=== PATIENT | male | born 1955 | race African-American/Black ===

== ENCOUNTER 2016-10-19 07:54 | Emergency (ER) | payer OTHER ==
[~2016-10-19] VITALS: Ht 167.6 cm; Wt 57.1 kg
[~2016-10-19 07:54] MED LIST: ACETAMINOPHEN-1 EAC1 PO; ADULT LOW DOSE81 MG PO; ALEVE220 M1; AMLODIPINE BESYL5 MG PO; AMOXICILLIN 50500 MG PO; ASPIRIN325 PO; AUGMENTIN400 MG/51 PO; AZITHROMYCIN250 MG PO; BLOOD PRESSURE PILL; CARAFATE 11 GM/10 M1 PO; CIPROFLOXACIN500 M1 PO; COLACE 100 MG100 MG PO; COLACE100 MG PO; COMBIVENT INH; ENDUR-ACIN500 MG PO; FAMOTIDINE 20 M20 MG PO; FERROUS SULFAT325 M1 PO; FLAGYL500 MG; FLAGYL500 MG PO; HYDROCODON-ACE1 EAC7 PO; IBUPROFEN 800800 MG PO; IMDUR 30 MG TAB30 M1 PO; IRON; IRON325 PO; LIBRIUM10 MG PO; LIPITOR10 MG PO; METRONIDAZOLE500 M4 PO; MILK OF MA400 MG/5 M PO; MIRALAX255 GM PO; NEXIUM 40 MG CA40 M1 PO; NOHOMEMEDICATIONS; NORCO 5-325 TA1 EACH; NORCO 5-325 TA1 EACH PO; NORVASC 5 MG TAB5 MG PO; PERCOCET 5-3251 EACH PO; PHENADOZ25 MG RC; PHENERGAN 25 MG25 M1 PO; PHENERGAN25 M2 RC; PHENERGAN25 MG RECTAL; PLAVIX 75 MG TA75 M1 PO; PREDNISONE 20 M20 MG PO; PRILOSEC 20 MG20 MG PO; PRILOSEC40 MG PO; PROBIOTIC1 EACH; PROTONIX40 M1 PO; PROTONIX40 M2 PO; PROTONIX40 MG PO; QUINAPRIL-HCTZ1 EACH PO; QUINU10 PD; SIMVASTATIN40 MG PO; VENTOLIN HFA 1818 GM INH; VICODIN 5-5001 EACH PO; VITAMIN D 5050000 I1; VITAMIN D32000 UNIT PO; VITAMIN D400 UNI1; ZANTAC 150MG T150 M1 PO; ZANTAC 150MG T150 MG PO; ZANTAC 7575 MG PO; ZOFRAN 4 MG ORAL4 MG PO; ZOFRAN ODT4 MG PO; ZOFRAN4 MG PO
[2016-10-19] MEDS ORDERED: PROTONIX 20 MG20 M1 PO (08:12)
[2016-10-19] MEDS ORDERED: QUINAPRIL-HCTZ1 EACH PO (08:13)
[2016-10-19 09:27] LABS: ABSOLUTE NEUTROPHILS 1.7 thou/uL (1.4-8.2); EOSINOPHILS 1.8 % (0.0-3.0); HEMATOCRIT 23.4 % (42.0-52.0); HEMOGLOBIN 7.7 gm/dL (14.0-18.0); LYMPHOCYTES 38.8 % (24.0-44.0); MCH 25.4 pg (26.0-34.0); MCV 76.9 fL (80.0-100.0); MONOCYTES 11.1 % (1.0-8.0); PLATELET COUNT 181 thou/uL (150-400); POLYS 47.3 % (36.0-66.0); RBC 3.04 mil/uL (4.50-6.00); RDW 14.7 % (10.5-14.5); WBC 3.5 thou/uL (4.0-11.0)
[2016-10-19 09:32] LABS: MANUAL DIFF NO
[2016-10-19 09:34] LABS: CALCIUM 9.2 mg/dL (8.5-10.1); CREATININE 1.2 mg/dL (0.7-1.3); POTASSIUM 3.5 mmol/L (3.5-5.1)
[2016-10-19 09:40] LABS: APTT 25.7 Seconds (24.5-32.8); INR 1.1
[2016-10-19 11:03] LABS: URINE BILIRUBIN NEGATIVE (Negative); URINE BLOOD 3+ (Negative); URINE COLOR YELLOW; URINE GLUCOSE-RANDOM* NEGATIVE (Negative); URINE KETONES NEGATIVE (Negative); URINE LEUKOCYTES-REFLEX NEGATIVE (Negative); URINE PROTEIN (DIPSTICK) TRACE (Negative); URINE SPECIFIC GRAVITY 1.015 (1.003-1.035); URINE UROBILINOGEN 0.2 E.U./dl (0.2-1.0)
[2016-10-19 11:11] LABS: CASTS None Seen /LPF (None Seen); CRYSTALS None Seen /LPF (None Seen); SQUAMOUS None Seen /LPF (0-3); URINE RBC >20 Many /HPF (0-2)
[2016-10-19 11:12] LABS: URINE WBC-REFLEX 0-5 Rare /HPF (0-5)
== END 2016-10-19 13:33 | disposition home or self-care (01) ==
LOC: ER 07:54
PROVIDERS: Emergency Medicine
DX: R31.0 Gross hematuria (principal); I10 Essential (primary) hypertension; I25.2 Old myocardial infarction; Z87.19 Personal history of other diseases of the digestive system; F17.210 Nicotine dependence, cigarettes, uncomplicated; F15.10 Other stimulant abuse, uncomplicated

== ENCOUNTER 2016-12-15 13:26 | Inpatient (IN) | payer OTHER ==
[~2016-12-15] VITALS: Ht 167.6 cm; Wt 56.7 kg
--- NOTE | ~2016-12-15 | S ---
[facility] [place] [address] SURGICAL PATH RPT PROCEDURE Name: LINDSAY VALDEZ Room #: 439-P DIS IN M.R.#: [id number] Admission: 12/15/16 Date of : 51 Discharge: 12/18/16 Report #: [id number] Path Case #: [id number] PATHOLOGY REPORT COLLECTION DATE: 12/16/2016 RECEIVED DATE: 12/19/2016 SUBMITTING PHYS: Dr. Roula Hinson OTHER PHYS: SPECIMEN(S) RECEIVED: A.Peripheral smear * * * * * * * * * * * * FINAL DIAGNOSIS: Peripheral blood smear: - Severe microcytic anemia (see comment). COMMENT: Overall, the peripheral blood has severe microcytic anemia. WBC and platelet counts are within the normal reference ranges. The WBC differential is without significant abnormalities. The etiology of the findings is unclear based entirely on slide review. It is likely iron deficiency anemia. Other causes of microcytic anemia include thalassemia and other hemoglobinopathies. Correlation with clinical history and additional laboratory data is recommended. (CLW:db; 12/19/2016) PATHOLOGIST: Nieves Hoffman M.D. REPORT ELECTRONICALLY SIGNED BY: Nieves Hoffman M.D. DATE/TIME: 12/19/2016 21:33 * * * * * * * * * * * * MICROSCOPIC DESCRIPTION: CBC Data (12/16/16): WBC 4.200 /uL, RBC 2.83, hemoglobin 6.9 g/dL, hematocrit 21.3%, MCV 75.4 fL, MCH 24.3 pg, MCHC 32.2 g/dL, RDW 20.2%. Platelet count 157,000 /uL. Automated white blood cell differential: segs 47.1%, lymphs 39.0%, monos 11.5%, eos 1.8% and basos 0.6%. Manual white blood cell differential: segs 50%, lymphs 40%, monos 10%. Peripheral Blood Smear: Cytomorphological examination of the Pichardo's stained peripheral blood smear confirms the provided data. Red blood cells show severe microcytic anemia with moderate anisopoikilocytosis. No schistocytes or microspherocytes are seen. White blood cells are predominantly segmented neutrophils and are without significant dyspoiesis or significant left shift. Lymphocytes are predominantly small, round and mature appearing with condensed chromatin and scant cytoplasm [address] [address] SURGICAL PATH RPT PROCEDURE Name: LINDSAY VALDEZ Room #: 439-P DIS IN M.R.#: [id number] Admission: 12/15/16 Date of : 51 Discharge: 12/18/16 Report #: [id number] Path Case #: [id number] with admixed large granular lymphocytes. On scanning, no markedly atypical lymphoid cells are seen. Monocytes are mature. Platelets are adequate in number and mainly normal in morphology with rare larger platelets noted. CLINICAL HISTORY: 61 year old man with anemia. Morphologic review of the peripheral blood smear is requested by the patient's physician. INITIAL CPT CODE(S): A; NC Professional services performed by [facility] at [facility] [address], [place] [address] Technical services performed by [facility] at [address] [place] [address], [address], [place] [address]. [facility] [address] [place] [address] PHONE: [phone] DIRECTOR: Tiago Chadwick M.D. * * * END OF REPORT * * *
[~2016-12-15 13:26] MED LIST changes: +PROTONIX 20 MG20 M1 PO
[2016-12-15 13:27] VITALS: BP 137/84
[2016-12-15 14:13] LABS: ABSOLUTE NEUTROPHILS 3.8 thou/uL (1.4-8.2); BASOPHILS 0.6 % (0.0-2.0); EOSINOPHILS 1.1 % (0.0-3.0); HEMATOCRIT 26.4 % (42.0-52.0); HEMOGLOBIN 8.4 gm/dL (14.0-18.0); MCV 75.1 fL (80.0-100.0); MONOCYTES 9.7 % (1.0-8.0); PLATELET COUNT 203 thou/uL (150-400); POLYS 47.6 % (36.0-66.0); RBC 3.51 mil/uL (4.50-6.00); RDW 19.9 % (10.5-14.5); WBC 7.9 thou/uL (4.0-11.0)
[2016-12-15 14:14] LABS: MANUAL DIFF NO
[2016-12-15 14:16] LABS: CALCIUM 9.3 mg/dL (8.5-10.1); CREATININE 1.2 mg/dL (0.7-1.3); POTASSIUM 3.5 mmol/L (3.5-5.1)
[2016-12-15 14:16] LABS: URINE BILIRUBIN NEGATIVE (Negative); URINE BLOOD 1+ (Negative); URINE COLOR YELLOW; URINE GLUCOSE-RANDOM* NEGATIVE (Negative); URINE KETONES NEGATIVE (Negative); URINE LEUKOCYTES-REFLEX NEGATIVE (Negative); URINE PROTEIN (DIPSTICK) NEGATIVE (Negative); URINE UROBILINOGEN 0.2 E.U./dl (0.2-1.0)
[2016-12-15 14:22] LABS: ALBUMIN 3.8 g/dL (3.4-5.0); TOTAL BILIRUBIN 0.3 mg/dL (<0.1-1.0); TOTAL PROTEIN 8.1 g/dL (6.4-8.2)
[2016-12-15 14:27] LABS: SQUAMOUS 0-3 Few /LPF (0-3)
[2016-12-15 14:28] LABS: HYALINE CASTS 0-3 Few /LPF (None Seen); URINE RBC 3-10 Few /HPF (0-2); URINE WBC-REFLEX 0-5 Rare /HPF (0-5)
[2016-12-15 14:29] LABS: CRYSTALS None Seen /LPF (None Seen)
[2016-12-15] MEDS ORDERED: CENTRUM SILVER1 EAC2 PO (14:58)
[2016-12-15 17:12] VITALS: BP 118/63
[2016-12-15 17:44] VITALS: BP 130/58
[2016-12-15 17:47] VITALS: BP 130/58
[2016-12-15 19:45] VITALS: BP 114/63
[2016-12-16 00:35] VITALS: BP 123/64
[2016-12-16 04:45] VITALS: BP 121/59
[2016-12-16 06:23] LABS: MCH 24.2 pg (26.0-34.0); MCHC 32.5 g/dL (28.0-37.0); MCV 74.4 fL (80.0-100.0); WBC 4.1 thou/uL (4.0-11.0)
[2016-12-16 06:25] LABS: HEMOGLOBIN 6.8 gm/dL (14.0-18.0); RBC 2.83 mil/uL (4.50-6.00); RDW 19.6 % (10.5-14.5)
[2016-12-16 06:35] LABS: CALCIUM 8.2 mg/dL (8.5-10.1); CREATININE 1.1 mg/dL (0.7-1.3); POTASSIUM 3.6 mmol/L (3.5-5.1)
[2016-12-16 08:13] VITALS: BP 118/53
[2016-12-16 11:29] VITALS: BP 119/62; BP 128/68
[2016-12-16 12:33] LABS: OBSERVED RETIC COUNT 0.7 % (0.6-2.6)
[2016-12-16 19:40] VITALS: BP 135/64
[2016-12-16 19:40] LABS: HEMATOCRIT 23.1 % (42.0-52.0); HEMOGLOBIN 7.5 gm/dL (14.0-18.0)
[2016-12-17 04:46] VITALS: BP 147/60
[2016-12-17 05:01] LABS: HEMATOCRIT 24.3 % (42.0-52.0); HEMOGLOBIN 8.1 gm/dL (14.0-18.0); MCH 25.6 pg (26.0-34.0); MCHC 33.2 g/dL (28.0-37.0); MCV 77.2 fL (80.0-100.0); RBC 3.15 mil/uL (4.50-6.00); RDW 20.4 % (10.5-14.5); WBC 3.9 thou/uL (4.0-11.0)
[2016-12-17 05:17] LABS: CREATININE 1.1 mg/dL (0.7-1.3); POTASSIUM 3.5 mmol/L (3.5-5.1)
[2016-12-17 07:25] VITALS: BP 149/74
[2016-12-17 16:25] VITALS: BP 158/70
[2016-12-17 19:10] VITALS: BP 128/61
[2016-12-18 03:45] VITALS: BP 151/66
[2016-12-18 06:37] LABS: HEMATOCRIT 27.4 % (42.0-52.0); HEMOGLOBIN 9.2 gm/dL (14.0-18.0); MCH 25.5 pg (26.0-34.0); MCHC 33.4 g/dL (28.0-37.0); MCV 76.4 fL (80.0-100.0); RBC 3.59 mil/uL (4.50-6.00); RDW 20.2 % (10.5-14.5); WBC 5.8 thou/uL (4.0-11.0)
[2016-12-18 06:50] LABS: POTASSIUM 3.4 mmol/L (3.5-5.1)
[2016-12-18 07:30] VITALS: BP 140/70
[2016-12-18] MEDS ORDERED: FLAGYL500 MG PO (12:02)
[2016-12-18] MEDS ORDERED: CIPRO500 MG PO (12:02)
[2016-12-18] MEDS ORDERED: NORCO 5-325 TA1 EACH PO (12:03)
[2016-12-18 12:19] VITALS: BP 140/70
== END 2016-12-18 13:23 | disposition home or self-care (01) | DRG 392 ==
LOC: ER 13:26 → 4S 17:05 → EROBS 17:05 → 4S 18:09
PROVIDERS: Emergency Medicine; Hospitalist; Internal Medicine Hematology & Oncology
PROC: 30233N1 Transfusion of Nonautologous Red Blood Cells into Peripheral Vein, Percutaneous Approach (ICD-10-PCS; principal; 2016-12-16)
DX: K52.9 Noninfective gastroenteritis and colitis, unspecified (principal); I10 Essential (primary) hypertension; F17.210 Nicotine dependence, cigarettes, uncomplicated; I25.10 Atherosclerotic heart disease of native coronary artery without angina pectoris; E78.5 Hyperlipidemia, unspecified; I73.9 Peripheral vascular disease, unspecified; D50.9 Iron deficiency anemia, unspecified; Z80.0 Family history of malignant neoplasm of digestive organs; Z87.11 Personal history of peptic ulcer disease; Z79.899 Other long term (current) drug therapy; I25.2 Old myocardial infarction; Z95.5 Presence of coronary angioplasty implant and graft
CPT/HCPCS: 10102

== ENCOUNTER 2017-03-16 21:46 | Emergency (ER) | payer OTHER ==
[~2017-03-16] VITALS: Ht 167.6 cm; Wt 56.7 kg
--- NOTE | ~2017-03-16 | EKG ---
[address] [place] [address] ELECTROCARDIOGRAM REPORT Name: LINDSAY VALDEZ Room #: DEP ANTONIA Krishnamurthy#: [id number] Admission: 03/16/17 Attend Phys: Discharge: 03/17/17 Date of : 51 Report #: [id number] THIS REPORT FOR: //name// [facility] ED Test Date: 2017-03-16 Test Time: 21:59:48 Pat Name: LINDSAY VALDEZ Department: Room: 170 Gender: M Health And Wellness Coordinator: KALIN : 1955 Requested By: Antione Rice Order Number: [id number] MD: Evan Hardy Measurements Intervals [place] Rate: 70 P: 29 VA: 232 QRS: -1 QRSD: 92 T: 60 QT: 456 QTc: 493 Interpretive Statements Sinus rhythm Prolonged VA interval Borderline T wave abnormalities Compared to ECG 12/07/2015 09:00:51 T-wave abnormality now present Electronically Signed On 03-17-2017 8:12:22 COURT BAILIFF OR SHERIFF by Evan Hardy [email or web address] <ELECTRONICALLY SIGNED> By: Evan Hardy MD 03/17/17811 58 58 Evan Hardy MD /BENJAMIN
[~2017-03-16 21:46] MED LIST changes: +CENTRUM SILVER1 EAC2 PO; +CIPRO500 MG PO
[2017-03-16 21:51] VITALS: BP 125/67
[2017-03-16 22:17] LABS: ABSOLUTE NEUTROPHILS 1.5 thou/uL (1.4-8.2); BASOPHILS 0.8 % (0.0-2.0); EOSINOPHILS 3.2 % (0.0-3.0); HEMATOCRIT 25.2 % (42.0-52.0); HEMOGLOBIN 8.3 gm/dL (14.0-18.0); LYMPHOCYTES 52.5 % (24.0-44.0); MCH 27.3 pg (26.0-34.0); MCV 82.9 fL (80.0-100.0); MONOCYTES 10.5 % (1.0-8.0); PLATELET COUNT 191 thou/uL (150-400); RBC 3.04 mil/uL (4.50-6.00); RDW 15.2 % (10.5-14.5); WBC 4.7 thou/uL (4.0-11.0)
[2017-03-16 22:24] LABS: ANION GAP 9 mmol/L (7-16); BUN 12 mg/dL (7-18); CALCIUM 8.5 mg/dL (8.5-10.1); CHLORIDE 104 mmol/L (98-107); CO2 26 mmol/L (21-32); GLUCOSE 101 mg/dL (74-106); POTASSIUM 3.5 mmol/L (3.5-5.1); SODIUM 139 mmol/L (136-145)
[2017-03-16 22:32] LABS: TROPONIN-I < 0.04 ng/mL (<0.06)
[2017-03-17 00:27] LABS: URINE BILIRUBIN NEGATIVE (Negative); URINE BLOOD NEGATIVE (Negative); URINE CLARITY CLEAR; URINE COLOR YELLOW; URINE GLUCOSE-RANDOM* NEGATIVE (Negative); URINE KETONES NEGATIVE (Negative); URINE LEUKOCYTES NEGATIVE (Negative); URINE NITRITE NEGATIVE (Negative); URINE PROTEIN (DIPSTICK) NEGATIVE (Negative); URINE SPECIFIC GRAVITY 1.025 (1.005-1.035); URINE UROBILINOGEN 0.2 E.U./dl (0.2-1.0)
[2017-03-17 00:36] LABS: AMP/METHAMP Negative (Negative); BARBITURATES Negative (Negative); BENZODIAZEPINES Negative (Negative); COCAINE Negative (Negative); METHADONE Negative (Negative); OPIATES Negative (Negative); PCP Negative (Negative)
[2017-03-17 01:03] VITALS: BP 102/54
[2017-07-01] MEDS ORDERED: ACETAMIN-CODE12.5 ML PO (23:27)
[2017-07-01] MEDS ORDERED: PLAVIX 75 MG TA75 M1 PO (23:27)
[2017-11-18] MEDS ORDERED: MIRALAX119 GM PO (03:13)
== END 2017-03-17 01:07 | disposition home or self-care (01) ==
LOC: ER 21:46 → EROBS 23:04 → ER 23:04
PROVIDERS: Nurse Practitioner
DX: R41.82 Altered mental status, unspecified (principal); D64.9 Anemia, unspecified; F12.10 Cannabis abuse, uncomplicated

== ENCOUNTER 2017-05-11 07:44 | Emergency (ER) | payer OTHER ==
[~2017-05-11] VITALS: Ht 167.6 cm; Wt 56.7 kg
--- NOTE | ~2017-05-11 | EKG ---
[place] [address] [facility] [employer] [address] ELECTROCARDIOGRAM REPORT Name: LINDSAY VALDEZ Room #: DEP Yessy#: [id number] Admission: 05/11/17 Attend Phys: Discharge: 05/11/17 Date of : 51 Report #: [id number] THIS REPORT FOR: //name// ED Test Date: 2017-05-11 Test Time: 08:45:53 Pat Name: LINDSAY VALDEZ Department: Room: Gender: Inspector Paper Products: Veronica JOLLY RN : 1955 Requested By: Jazmín Zuniga Order Number: [id number] MD: Art Willis Measurements Intervals [place] Rate: 58 P: -67 CT: 257 QRS: -24 QRSD: 91 T: 53 QT: 472 QTc: 464 Interpretive Statements Sinus rhythm Prolonged CT interval Borderline left axis deviation Nonspecific T wave abnormality Compared to ECG 03/16/2017 21:59:48 No significant change was found Electronically Signed On 05-12-2017 7:47:55 SUPERCALENDER OPERATOR HELPER by Art Willis [email or web address] <ELECTRONICALLY SIGNED> By: Art Willis MD, [facility] 05/12/17 0747 Art Willis MD, [facility] /EPI
[2017-05-11] MEDS ORDERED: COLACE100 MG PO (08:02)
[2017-05-11] MEDS ORDERED: CENTRUM SILVER1 EAC4 PO (08:03)
[2017-05-11] MEDS ORDERED: ASPIRIN325 PO (08:04)
[2017-05-11 08:46] LABS: ABSOLUTE NEUTROPHILS 1.8 thou/uL (1.4-8.2); BASOPHILS 0.8 % (0.0-2.0); EOSINOPHILS 2.5 % (0.0-3.0); HEMATOCRIT 27.1 % (42.0-52.0); LYMPHOCYTES 47.2 % (24.0-44.0); MCH 26.8 pg (26.0-34.0); MCHC 33.3 g/dL (28.0-37.0); MCV 80.4 fL (80.0-100.0); MONOCYTES 8.7 % (1.0-8.0); PLATELET COUNT 180 thou/uL (150-400); POLYS 40.8 % (36.0-66.0); RBC 3.38 mil/uL (4.50-6.00); RDW 14.9 % (10.5-14.5); WBC 4.4 thou/uL (4.0-11.0)
[2017-05-11 08:51] LABS: ANION GAP 7 mmol/L (7-16); BUN 12 mg/dL (7-18); CALCIUM 9.1 mg/dL (8.5-10.1); CHLORIDE 101 mmol/L (98-107); CO2 29 mmol/L (21-32); GLUCOSE 91 mg/dL (74-106); POTASSIUM 3.6 mmol/L (3.5-5.1); SODIUM 137 mmol/L (136-145)
[2017-05-11] MEDS ORDERED: NITROGLYCERIN0.4 MG SUBLING (08:54)
[2017-05-11 08:59] LABS: TROPONIN-I < 0.04 ng/mL (<0.06)
[2017-05-11] MEDS ORDERED: NORCO 5-325 TA1 EACH PO (10:01)
[2017-05-11] MEDS ORDERED: VALIUM5 MG PO (10:01)
[2017-05-11] MEDS ORDERED: MOBIC15 MG PO (10:01)
[2017-05-11 10:22] VITALS: BP 118/62
[2017-07-01] MEDS ORDERED: PLAVIX 75 MG TA75 M1 PO (23:27)
[2017-07-01] MEDS ORDERED: ACETAMIN-CODE12.5 ML PO (23:27)
[2017-11-18] MEDS ORDERED: MIRALAX119 GM PO (03:13)
== END 2017-05-11 10:20 | disposition home or self-care (01) ==
LOC: ER 07:44
PROVIDERS: Emergency Medicine
DX: M54.5 Low back pain (principal); I10 Essential (primary) hypertension; I25.2 Old myocardial infarction; F17.210 Nicotine dependence, cigarettes, uncomplicated

== ENCOUNTER 2017-05-16 12:08 | Inpatient (IN) | payer OTHER ==
[~2017-05-16] VITALS: Ht 167.6 cm; Wt 53.5 kg
--- NOTE | ~2017-05-16 | EKG ---
[address] [place] [address] ELECTROCARDIOGRAM REPORT Name: LINDSAY VALDEZ Room #: 417-I ADM IN M.R.#: [id number] Admission: 05/16/17 Attend Phys: Dajuan Lang MD Discharge: Date of : 51 Report #: [id number] THIS REPORT FOR: //name// [facility] ED Test Date: 2017-05-16 Test Time: 12:36:24 Pat Name: LINDSAY VALDEZ Department: Room: [facility] Gender: M General Laborer: KALIN : 1955 Requested By: Antione Rice Order Number: [id number] MD: Art Willis Measurements Intervals [place] Rate: 67 P: 31 IA: 221 QRS: -5 QRSD: 80 T: QT: 451 QTc: 476 Interpretive Statements Sinus rhythm Nonspecific ST and T wave abnormality Compared to ECG 05/11/2017 08:45:53 No significant change was found Electronically Signed On 05-16-2017 17:03:15 CDT by Art Willis [email or web address] <ELECTRONICALLY SIGNED> By: Art Willis MD, [facility] 05/16/17 1703 1236 1236 Art Willis MD, [facility] /EPI
[~2017-05-16 12:08] MED LIST changes: +CENTRUM SILVER1 EAC4 PO; +MOBIC15 MG PO; +NITROGLYCERIN0.4 MG SUBLING; +VALIUM5 MG PO
[2017-05-16 12:09] VITALS: BP 126/77
[2017-05-16 12:44] LABS: BASOPHILS 0.9 % (0.0-2.0); EOSINOPHILS 1.8 % (0.0-3.0); HEMATOCRIT 32.5 % (42.0-52.0); HEMOGLOBIN 10.4 gm/dL (14.0-18.0); MCV 81.1 fL (80.0-100.0); MONOCYTES 9.4 % (1.0-8.0); PLATELET COUNT 190 thou/uL (150-400); POLYS 57.9 % (36.0-66.0); RDW 14.8 % (10.5-14.5); WBC 5.2 thou/uL (4.0-11.0)
[2017-05-16 12:59] LABS: ANION GAP 13 mmol/L (7-16); BUN 21 mg/dL (7-18); CALCIUM 9.6 mg/dL (8.5-10.1); CHLORIDE 101 mmol/L (98-107); CO2 24 mmol/L (21-32); GLUCOSE 73 mg/dL (74-106); POTASSIUM 3.9 mmol/L (3.5-5.1); SODIUM 138 mmol/L (136-145)
[2017-05-16 13:08] LABS: ALBUMIN 3.9 g/dL (3.4-5.0); LIPASE 55 U/L (73-393); SGOT 51 U/L (15-37); SGPT 40 U/L (30-65); TOTAL BILIRUBIN 0.6 mg/dL (<0.1-1.0); TOTAL PROTEIN 8.4 g/dL (6.4-8.2); TROPONIN-I < 0.04 ng/mL (<0.06)
[2017-05-16 14:03] LABS: URINE BLOOD 1+ (Negative); URINE CLARITY CLEAR; URINE COLOR YELLOW; URINE GLUCOSE-RANDOM* NEGATIVE (Negative); URINE KETONES 2+ (Negative); URINE LEUKOCYTES NEGATIVE (Negative); URINE NITRITE NEGATIVE (Negative); URINE PROTEIN (DIPSTICK) NEGATIVE (Negative); URINE SPECIFIC GRAVITY 1.025 (1.005-1.035); URINE UROBILINOGEN 0.2 E.U./dl (0.2-1.0)
[2017-05-16 14:05] LABS: ICTOTEST (BILI CONFIRMATORY) Negative (Negative); URINE BILIRUBIN NEGATIVE (Negative)
[2017-05-16 14:19] LABS: SQUAMOUS >10 Many /LPF (0-3)
[2017-05-16 14:20] LABS: BACTERIA 1-9 Few /HPF (None Seen); CASTS None Seen /LPF (None Seen); CRYSTALS None Seen /LPF (None Seen); URINE RBC 0-2 Rare /HPF (0-2); URINE WBC 0-5 Rare /HPF (0-5)
[2017-05-16 16:05] VITALS: BP 124/70
[2017-05-16 20:42] VITALS: BP 116/58
[2017-05-17 04:13] VITALS: BP 124/52
[2017-05-17 06:05] LABS: HEMATOCRIT 27.8 % (42.0-52.0); HEMOGLOBIN 8.9 gm/dL (14.0-18.0); MCH 26.3 pg (26.0-34.0); MCHC 32.1 g/dL (28.0-37.0); RBC 3.39 mil/uL (4.50-6.00); RDW 14.9 % (10.5-14.5); WBC 2.8 thou/uL (4.0-11.0)
[2017-05-17 06:33] LABS: CALCIUM 8.1 mg/dL (8.5-10.1); CREATININE 1.1 mg/dL (0.7-1.3); POTASSIUM 3.8 mmol/L (3.5-5.1)
[2017-05-17 07:12] VITALS: BP 108/45
[2017-05-17 08:43] VITALS: BP 124/52
[2017-05-17 16:12] VITALS: BP 94/57
[2017-05-17 20:00] VITALS: BP 91/39
[2017-05-18 04:00] VITALS: BP 110/48
[2017-05-18 08:10] VITALS: BP 102/53
[2017-05-18] MEDS ORDERED: FLEXERIL PO (11:59)
[2017-05-18] MEDS ORDERED: CARAFATE 1 GM TA1 G1 PO (11:59)
[2017-05-18] MEDS ORDERED: PERCOCET PO (11:59)
[2017-05-18 12:04] VITALS: BP 102/53
[2017-07-01] MEDS ORDERED: ACETAMIN-CODE12.5 ML PO (23:27)
[2017-07-01] MEDS ORDERED: PLAVIX 75 MG TA75 M1 PO (23:27)
[2017-11-18] MEDS ORDERED: MIRALAX119 GM PO (03:13)
== END 2017-05-18 13:59 | disposition home or self-care (01) | DRG 392 ==
LOC: ER 12:08 → EROBS 14:20 → 4E 14:20
PROVIDERS: Hospitalist; Nurse Practitioner
DX: K29.70 Gastritis, unspecified, without bleeding (principal); Z68.1 Body mass index [BMI] 19.9 or less, adult; M54.9 Dorsalgia, unspecified; I10 Essential (primary) hypertension; F17.210 Nicotine dependence, cigarettes, uncomplicated; E78.5 Hyperlipidemia, unspecified; I25.10 Atherosclerotic heart disease of native coronary artery without angina pectoris; Z23 Encounter for immunization; I25.2 Old myocardial infarction; Z79.899 Other long term (current) drug therapy
CPT/HCPCS: 10084

== ENCOUNTER 2017-10-06 19:59 | Emergency (ER) | payer OTHER ==
[~2017-10-06] VITALS: Ht 167.6 cm; Wt 51.7 kg
--- NOTE | ~2017-10-06 | EKG ---
[address] [place] [address] ELECTROCARDIOGRAM REPORT Name: LINDSAY VALDEZ Room #: REG ANTONIA Krishnamurthy#: [id number] Admission: 10/06/17 Attend Phys: Discharge: Date of : 51 Report #: [id number] THIS REPORT FOR: //name// [facility] ED Test Date: 2017-10-06 Test Time: 20:08:49 Pat Name: LINDSAY VALDEZ Department: Room: Gender: Rn Nursery: Andreina ALTAMIRANO : 1955 Requested By: Jazmín Zuniga Order Number: [id number] MD: Measurements Intervals [place] Rate: 69 P: 27 HI: 227 QRS: -10 QRSD: 94 T: 44 QT: 457 QTc: 490 Interpretive Statements Sinus rhythm Prolonged [place] interval Borderline T wave abnormalities Borderline prolonged QT interval No previous ECG available for comparison [email or web address] By: 07 07 Autumn Leyva MD /EPI
[~2017-10-06 19:59] MED LIST changes: +ACETAMIN-CODE12.5 ML PO; +CARAFATE 1 GM TA1 G1 PO; +FLEXERIL PO; +PERCOCET PO
[2017-10-06] MEDS ORDERED: CABERGOLINE 0.0.5 M1 PO (20:12)
[2017-10-06 20:53] LABS: ABSOLUTE NEUTROPHILS 2.7 thou/uL (1.4-8.2); BASOPHILS 0.7 % (0.0-2.0); EOSINOPHILS 1.8 % (0.0-3.0); HEMATOCRIT 27.4 % (42.0-52.0); LYMPHOCYTES 37.3 % (24.0-44.0); MCH 26.6 pg (26.0-34.0); MCHC 32.9 g/dL (28.0-37.0); MCV 80.9 fL (80.0-100.0); MONOCYTES 8.7 % (1.0-8.0); PLATELET COUNT 198 thou/uL (150-400); POLYS 51.5 % (36.0-66.0); RBC 3.39 mil/uL (4.50-6.00); RDW 16.1 % (10.5-14.5); WBC 5.2 thou/uL (4.0-11.0)
[2017-10-06 20:55] LABS: ANION GAP 7 mmol/L (7-16); BUN 15 mg/dL (7-18); CALCIUM 8.8 mg/dL (8.5-10.1); CHLORIDE 102 mmol/L (98-107); CO2 26 mmol/L (21-32); CREATININE 1.4 mg/dL (0.7-1.3); GLUCOSE 118 mg/dL (74-106); POTASSIUM 3.1 mmol/L (3.5-5.1); SODIUM 135 mmol/L (136-145)
[2017-10-06 21:04] LABS: TROPONIN-I <0.06 ng/mL (<0.06)
[2017-10-07] MEDS ORDERED: IMDUR 30 MG TAB30 M1 PO (10:52)
== END 2017-10-06 23:34 | disposition home or self-care (01) ==
LOC: ER 19:59
PROVIDERS: Emergency Medicine
DX: E87.6 Hypokalemia (principal); R07.9 Chest pain, unspecified; F17.210 Nicotine dependence, cigarettes, uncomplicated; I10 Essential (primary) hypertension; D64.9 Anemia, unspecified; I25.10 Atherosclerotic heart disease of native coronary artery without angina pectoris

== ENCOUNTER 2017-10-07 05:39 | Inpatient (IN) | payer OTHER ==
[~2017-10-07] VITALS: Ht 167.6 cm; Wt 51.7 kg
--- NOTE | ~2017-10-07 | EKG ---
[address] [address] ELECTROCARDIOGRAM REPORT Name: LINDSAY VALDEZ Room #: 356-P ADM IN M.R.#: [id number] Admission: 10/07/17 Attend Phys: Ramon Ham MD Discharge: Date of : 51 Report #: [id number] THIS REPORT FOR: //name// [facility] ED Test Date: 2017-10-07 Test Time: 05:47:56 Pat Name: LINDSAY VALDEZ Department: Room: 356 Gender: M Allocations Clerk: : 1955 Requested By: Jazmín Zuniga Order Number: [id number] MD: Med Gonzalez Measurements Intervals [place] Rate: 72 P: 66 [place]: 195 QRS: 1 QRSD: 91 T: 64 QT: 482 QTc: 528 Interpretive Statements Sinus rhythm Prolonged QT interval Nonspecific ST segment abnormalities Compared to ECG 07/01/2017 18:56:34 Prolonged QT interval now present First degree AV block no longer present T-wave abnormality no longer present Electronically Signed On 10-07-2017 10:18:04 CDT by Med Gonzalez [email or web address] <ELECTRONICALLY SIGNED> By: Med Gonzalez MD 10/07/17 1018 0547 0547 Med Gonzalez MD /[facility]
--- NOTE | ~2017-10-07 | HC ---
[facility] [place] [address] CONSULTATION Name: LINDSAY VALDEZ Room #: [facility] IN M.R.#: [id number] Admission: 10/07/17 Attend Phys: Ramon Ham MD Discharge: 10/07/17 Date of : 51 Report #: [id number] THIS REPORT FOR: //name// CC: Ramon MARIE unknown DATE OF SERVICE: 10/07/2017 TYPE OF REPORT: Cardiology consultation. INDICATION: Chest pain. HISTORY OF PRESENT ILLNESS: This is a 62-year-old gentleman with a history of nonobstructive CAD, pituitary mass, hypertension, anemia and colitis. The patient reports having a left focal chest pain, radiating laterally. It did not change with deep inspiration or movement of the arms. It lasted for at least an hour in duration. He felt mild dyspnea along with it. There is no history of fever, nausea or diarrhea. He had a cardiac catheterization in June 2017 revealing oltc-pm-jwanuasf disease in the left main in all three epicardial vessels. The LV systolic function is preserved. He does have a history of moderate aortic insufficiency. PAST MEDICAL HISTORY: As above. Follows with a PCP at [facility]. 1. History of coronary artery disease. 2. Hypertension. 3. Hypercholesterolemia. 4. History of seizure, attributed to (?) pituitary mass. 5. History of anemia. 6. History of tobacco use. ALLERGIES: None. CURRENT MEDICATIONS: Include Lipitor 10 mg daily, Protonix twice a day, Plavix 75 mg daily and quinapril/hydrochlorothiazide once a day. SOCIAL HISTORY: Positive tobacco use. FAMILY HISTORY: Negative for premature CAD. REVIEW OF SYSTEMS: A full 10-point review of systems performed. Only the pertinent positives and negatives are described in the HPI. PHYSICAL EXAMINATION: VITAL SIGNS: Blood pressure is 130/70 and heart rate is 60 beats per minute. GENERAL APPEARANCE: This is a well-developed and well-nourished male, in [address] [address] CONSULTATION Name: LINDSAY VALDEZ Room #: [facility] IN [facility].#: [id number] Admission: 10/07/17 Attend Phys: Ramon Ham MD Discharge: 10/07/17 Date of : 51 Report #: [id number] acute distress. HEENT: Normocephalic and atraumatic. Sclerae are anicteric. ENT: Oral mucosa moist. LUNGS: Clear to auscultation. CARDIAC: Regular rate and rhythm. S1 and S2 positive. ABDOMEN: Soft and nontender. EXTREMITIES: No cyanosis. No edema. NEUROLOGICAL: Alert and oriented. RADIOLOGICAL DATA: ECG reveals sinus rhythm, nonspecific ST-segment abnormality. LABORATORY DATA: Troponin levels are negative x 3. White count is 5.2 and hemoglobin is 9.0. Sodium is 135 and creatinine is 1.4. ASSESSMENT AND PLAN: 1. Chest pain syndrome, atypical. He had left-sided pain at rest, lasting for more than an hour. Serial troponin levels are negative with no acute ST-segment changes. His previous catheterization revealed gvay-kr-nnovyrcd coronary artery disease. He remained stable at this time. He follows with his primary care physician, is at [facility]. We will add long-acting nitrates. The patient is instructed to follow up with his primary care physician upon discharge. 2. Hypertension, continue with medications. 3. Hypercholesterolemia, continue with statin therapy. 4. Pituitary mass, the patient reports getting treatment with medication. He will follow up with his neurologist. <ELECTRONICALLY SIGNED> By: Med Gonzalez MD 10/08/17 0019 1034 2105 Med Gonzalez MD /nt
[~2017-10-07 05:39] MED LIST changes: +CABERGOLINE 0.0.5 M1 PO
[2017-10-07 05:52] VITALS: BP 148/82
[2017-10-07 06:17] VITALS: BP 105/64
[2017-10-07 07:49] VITALS: BP 110/60
[2017-10-07 08:00] VITALS: BP 132/72
[2017-10-07] MEDS ORDERED: IMDUR 30 MG TAB30 M1 PO (10:52)
[2017-10-07 11:02] VITALS: BP 132/72
== END 2017-10-07 11:26 | disposition home or self-care (01) | DRG 206 ==
LOC: ER 05:39 → EROBS 06:12 → 3W 07:42
DX: M94.0 Chondrocostal junction syndrome [Tietze] (principal); I10 Essential (primary) hypertension; I25.10 Atherosclerotic heart disease of native coronary artery without angina pectoris; F17.210 Nicotine dependence, cigarettes, uncomplicated; E78.00 Pure hypercholesterolemia, unspecified; E23.7 Disorder of pituitary gland, unspecified; I25.2 Old myocardial infarction; Z95.5 Presence of coronary angioplasty implant and graft; Z79.02 Long term (current) use of antithrombotics/antiplatelets; Z79.899 Other long term (current) drug therapy
CPT/HCPCS: 10779

== ENCOUNTER 2018-04-26 19:29 | Emergency (ER) | payer OTHER ==
[~2018-04-26] VITALS: Ht 167.6 cm; Wt 59.0 kg
--- NOTE | ~2018-04-26 | EKG ---
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: : 1955 Requested By: Cesar Adams Order Number: [id number] MD: Measurements Intervals [place] Rate: 73 P: 70 NV: 229 QRS: 15 QRSD: 87 T: 65 QT: 434 QTc: 479 Interpretive Statements Sinus rhythm Prolonged [place] interval Borderline prolonged QT interval Compared to ECG 04/25/2018 07:17:10 Sinus bradycardia no longer present ST (T wave) deviation no longer present [email or web address] ��������������������������������������������� ���������������������������������������� By: ��������������������������������������������� 51 51 Epiphany Epiphany, /EPI
[~2018-04-26 19:29] MED LIST changes: +ASPIR 8181 MG PO; +HYDROCORTISONE5 MG PO; +KLOR-CON 1010 MEQ PO; +MAGNESIUM250 M1 PO; +METOPROLOL SUCC25 M1 PO; +MIRALAX119 GM PO; +MYRBETRIQ25 MG PO; +REPLESTA50000 UNIT PO; +TOPROL XL25 MG PO; +VITAMIN D35000 UNI1 PO
[2018-04-26 20:18] LABS: ANION GAP 12 mmol/L (7-16); BUN 39 mg/dL (7-18); CALCIUM 9.8 mg/dL (8.5-10.1); CHLORIDE 103 mmol/L (98-107); CO2 25 mmol/L (21-32); CREATININE 1.3 mg/dL (0.7-1.3); GLUCOSE 145 mg/dL (74-106); POTASSIUM 3.9 mmol/L (3.5-5.1); SODIUM 140 mmol/L (136-145)
[2018-04-26 20:27] LABS: PHOSPHORUS 3.8 mg/dL (2.5-4.9); SGOT 39 U/L (15-37); SGPT 50 U/L (30-65); TOTAL BILIRUBIN 0.1 mg/dL (<0.1-1.0); TOTAL PROTEIN 7.8 g/dL (6.4-8.2); TROPONIN-I <0.06 ng/mL (<0.06)
[2018-04-26] MEDS ORDERED: ATIVAN0.5 MG PO (21:46)
[2018-04-26 21:51] VITALS: BP 117/63
== END 2018-04-26 21:53 | disposition home or self-care (01) ==
LOC: ER 19:29
PROVIDERS: Emergency Medicine
DX: M62.838 Other muscle spasm (principal); E86.0 Dehydration; R42 Dizziness and giddiness; I10 Essential (primary) hypertension; I25.2 Old myocardial infarction; F17.210 Nicotine dependence, cigarettes, uncomplicated

== ENCOUNTER 2018-06-01 19:35 | Emergency (ER) | payer OTHER ==
[~2018-06-01] VITALS: Ht 167.6 cm; Wt 62.7 kg
[~2018-06-01 19:35] MED LIST changes: +ATIVAN0.5 MG PO
[2018-06-01] MEDS ORDERED: KLOR-CON 10 ER10 MEQ PO (19:51)
[2018-06-01 20:04] LABS: CALCIUM 9.9 mg/dL (8.5-10.1); POTASSIUM 3.9 mmol/L (3.5-5.1)
[2018-06-01] MEDS ORDERED: NEURONTIN 300300 M1 PO (21:52)
[2018-06-01] MEDS ORDERED: HYDROCORT PO (21:53)
[2018-06-01] MEDS ORDERED: IRON325 PO (21:54)
[2018-06-01] MEDS ORDERED: NORFLEX100 MG PO (22:02)
[2018-06-01 22:48] VITALS: BP 153/74
--- NOTE | 2018-06-02 10:23 | EKG ---
[place] [address] [facility] [place] [address] ELECTROCARDIOGRAM REPORT Name: LINDSAY VALDEZ Room #: DEP ANTONIA Krishnamurthy#: [id number] ������������������ Admission: 06/01/18 ������������������ Attend Phys: Discharge: 06/01/18 ������������������ Date of : 51 Report #: [id number] ����������������������������������������������������������������� [id number] THIS REPORT FOR: //name// [facility] ED Test Date: 2018-06-01 Test Time: 19:42:16 Pat Name: LINDSAY VALDEZ Department: Room: Gender: M 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: : 1955 Requested By: Mannie Geller Order Number: [id number] MD: Art Willis Measurements Intervals [place] Rate: 72 P: -14 NV: 202 QRS: -12 QRSD: 86 T: 58 QT: 402 QTc: 440 Interpretive Statements Sinus rhythm Leftward axis Compared to ECG 04/26/2018 19:52:20 No significant change was found Electronically Signed On 06-02-2018 10:23:31 CDT by Art Willis [email or web address] ��������������������������������������������� <ELECTRONICALLY SIGNED> ���������������������������������������� By: Art Willis MD, [facility] ��������������������������������������������� 06/02/18 1023 194 41 Art Willis MD, FACC /EPI
== END 2018-06-01 22:48 | disposition home or self-care (01) ==
LOC: ER 19:35
PROVIDERS: Emergency Medicine
DX: R25.2 Cramp and spasm (principal); R07.89 Other chest pain; F17.210 Nicotine dependence, cigarettes, uncomplicated; E78.5 Hyperlipidemia, unspecified; I10 Essential (primary) hypertension; I25.10 Atherosclerotic heart disease of native coronary artery without angina pectoris; Z86.2 Personal history of diseases of the blood and blood-forming organs and certain disorders involving the immune mechanism

== ENCOUNTER 2019-11-15 10:47 | Emergency (ER) | payer OTHER ==
[~2019-11-15] VITALS: Ht 188 cm; Wt 65.8 kg
[~2019-11-15 10:47] MED LIST changes: +HYDROCORT PO; +KLOR-CON 10 ER10 MEQ PO; +NEURONTIN 300300 M1 PO; +NORFLEX100 MG PO
[2019-11-15 11:32] LABS: HEMATOCRIT 26.6 % (42.0-52.0); HEMOGLOBIN 8.4 gm/dL (14.0-18.0); MCH 30.2 pg (26.0-34.0); MCHC 31.4 g/dL (28.0-37.0); MCV 96.1 fL (80.0-100.0); PLATELET COUNT 196 thou/uL (150-400); RBC 2.77 mil/uL (4.50-6.00); RDW 18.7 % (10.5-14.5); WBC 4.9 thou/uL (4.0-11.0)
[2019-11-15 11:50] LABS: CALCIUM 8.5 mg/dL (8.5-10.1); CREATININE 0.8 mg/dL (0.7-1.3); POTASSIUM 3.8 mmol/L (3.5-5.1)
[2019-11-15 11:54] LABS: ALBUMIN 3.6 g/dL (3.4-5.0); TOTAL BILIRUBIN 0.4 mg/dL (0.2-1.0); TOTAL PROTEIN 7.4 g/dL (6.4-8.2)
[2019-11-15 12:38] LABS: ABSOLUTE NEUTROPHILS 3.2 thou/uL (1.4-8.2); ANISOCYTOSIS 1+; HYPOCHROMASIA 1+; PLATELET ESTIMATE NORMAL
--- NOTE | 2019-11-15 12:48 | EKG ---
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: [facility] : 1955 Requested By: Jazmín Zuniga Order Number: [id number] MD: Austin Corey Measurements Intervals [place] Rate: 102 P: 62 WI: 194 QRS: -35 QRSD: 80 T: 56 QT: 356 QTc: 464 Interpretive Statements Sinus tachycardia Left axis deviation Compared to ECG 06/01/2018 19:42:16 Sinus rhythm no longer present Electronically Signed On 11-15-2019 12:48:33 CDT by Austin Corey [email or web address] <ELECTRONICALLY SIGNED> By: Austin Croey MD, FACC 11/15/19 1248 1053 1053 Austin Corey MD, FACC /EPI
--- NOTE | 2019-11-15 12:50 | EKG ---
[facility] [place] [address] ELECTROCARDIOGRAM REPORT Name: LINDSAY VALDEZ Room #: PRE M..#: [id number] Admission: Attend Phys: Discharge: Date of : 51 Report #: [id number] THIS REPORT FOR: cc: Austin Corey MD [facility] ~ THIS REPORT FOR: //name// [facility] ED Test Date: 2019-11-15 Test Time: 12:36:37 Pat Name: LINDSAY VALDEZ Department: Room: Gender: Aoc Director Combat Operations Officer: KF : 1955 Requested By: Rossy Kovacs Order Number: [id number] MD: Austin Corey Measurements Intervals [place] Rate: 64 P: 59 [place]: 195 QRS: -12 QRSD: 90 T: 50 QT: 457 QTc: 472 Interpretive Statements Sinus arrhythmia Compared to ECG 11/15/2019 10:53:53 Sinus tachycardia no longer present Electronically Signed On 11-15-2019 12:50:34 CDT by Austin Corey [email or web address] <ELECTRONICALLY SIGNED> By: Austin Corey MD, FACC 11/15/19 1250 1236 1236 Autsin Corey MD, FACC /EPI
[2019-11-15 13:37] LABS: URINE BILIRUBIN NEGATIVE (Negative); URINE BLOOD NEGATIVE (Negative); URINE CLARITY CLEAR; URINE COLOR YELLOW; URINE GLUCOSE-RANDOM* NEGATIVE (Negative); URINE KETONES 1+ (Negative); URINE LEUKOCYTES-REFLEX NEGATIVE (Negative); URINE NITRITE-REFLEX NEGATIVE (Negative); URINE PROTEIN (DIPSTICK) NEGATIVE (Negative); URINE SPECIFIC GRAVITY 1.025 (1.005-1.035); URINE UROBILINOGEN 0.2 E.U./dl (0.2-1.0)
[2019-11-15] MEDS ORDERED: PHENERGAN 25 MG25 M1 PO (14:32)
[2019-11-15 14:35] VITALS: BP 150/74
== END 2019-11-15 14:35 | disposition home or self-care (01) ==
LOC: ER 10:47
PROVIDERS: Emergency Medicine; Physician Assistant
DX: E86.0 Dehydration (principal); I10 Essential (primary) hypertension; I25.10 Atherosclerotic heart disease of native coronary artery without angina pectoris; I25.2 Old myocardial infarction; E78.5 Hyperlipidemia, unspecified; F17.210 Nicotine dependence, cigarettes, uncomplicated; Z79.899 Other long term (current) drug therapy; Z79.82 Long term (current) use of aspirin; Z79.01 Long term (current) use of anticoagulants

== ENCOUNTER 2020-02-21 13:27 | Emergency (ER) | payer OTHER ==
[~2020-02-21] VITALS: Ht 167.6 cm; Wt 59.0 kg
[2020-02-21 15:23] LABS: ABSOLUTE NEUTROPHILS 4.4 thou/uL (1.4-8.2); BASOPHILS 0.8 % (0.0-2.0); EOSINOPHILS 0.8 % (0.0-3.0); HEMATOCRIT 28.5 % (42.0-52.0); HEMOGLOBIN 9.1 gm/dL (14.0-18.0); LYMPHOCYTES 11.8 % (24.0-44.0); MCH 27.3 pg (26.0-34.0); MCHC 31.9 g/dL (28.0-37.0); MCV 85.7 fL (80.0-100.0); MONOCYTES 13.3 % (1.0-8.0); PLATELET COUNT 163 thou/uL (150-400); POLYS 73.3 % (36.0-66.0); RBC 3.33 mil/uL (4.50-6.00); RDW 15.3 % (10.5-14.5)
[2020-02-21 15:56] LABS: ALBUMIN 3.8 g/dL (3.4-5.0); CREATININE 0.9 mg/dL (0.7-1.3); DIRECT BILIRUBIN 0.2 mg/dL (<0.1-0.2); POTASSIUM 3.6 mmol/L (3.5-5.1); TOTAL BILIRUBIN 0.6 mg/dL (0.2-1.0); TOTAL PROTEIN 7.2 g/dL (6.4-8.2)
[2020-02-21 15:56] LABS: URINE BILIRUBIN NEGATIVE (Negative); URINE BLOOD TRACE (Negative); URINE CLARITY CLEAR; URINE COLOR YELLOW; URINE GLUCOSE-RANDOM* NEGATIVE (Negative); URINE KETONES 2+ (Negative); URINE LEUKOCYTES-REFLEX NEGATIVE (Negative); URINE NITRITE-REFLEX NEGATIVE (Negative); URINE PROTEIN (DIPSTICK) NEGATIVE (Negative); URINE SPECIFIC GRAVITY 1.015 (1.005-1.035)
[2020-02-21 16:11] LABS: CALCIUM 8.9 mg/dL (8.5-10.1)
[2020-02-21] MEDS ORDERED: ONDANSETRON HCL4 M2 PO (16:59)
[2020-02-21 17:11] VITALS: BP 175/69
--- NOTE | 2020-02-24 07:27 | EKG ---
[place] [address] [facility] [place] [address] ELECTROCARDIOGRAM REPORT Name: LINDSAY VALDEZ Room #: HERB Krishnamurthy#: [id number] Admission: 02/21/20 Attend Phys: Discharge: 02/21/20 Date of : 51 Report #: [id number] [facility] ED Test Date: 2020-02-21 Test Time: 14:55:04 Pat Name: LINDSAY VALDEZ Department: Room: Gender: M Mandrel Puller: NEGRITO : 1955 Requested By: Antione Rice Order Number: [id number] MD: Art Willis Measurements Intervals [place] Rate: 52 P: -20 NV: 205 QRS: -18 QRSD: 93 T: 40 QT: 542 QTc: 505 Interpretive Statements Sinus bradycardia Borderline left axis deviation Prolonged QT interval Compared to ECG 11/15/2019 12:36:37 Prolonged QT interval now present Electronically Signed On 02-24-2020 7:27:34 SURVEY RESEARCH MANAGER by Art Willis [email or web address] <ELECTRONICALLY SIGNED> By: Art Willis MD, [facility] 02/24/20 0727 1455 1455 Art Willis MD, FACC /EPI
== END 2020-02-21 17:15 | disposition home or self-care (01) ==
LOC: ER 13:27
PROVIDERS: Nurse Practitioner
DX: R11.2 Nausea with vomiting, unspecified (principal); R10.13 Epigastric pain; R10.11 Right upper quadrant pain; R10.12 Left upper quadrant pain; E78.5 Hyperlipidemia, unspecified; I10 Essential (primary) hypertension; I25.10 Atherosclerotic heart disease of native coronary artery without angina pectoris; I25.2 Old myocardial infarction; F17.210 Nicotine dependence, cigarettes, uncomplicated; Z79.899 Other long term (current) drug therapy; Z79.82 Long term (current) use of aspirin